=== PATIENT | male | born 1975 | race African-American/Black ===

== ENCOUNTER → 2017-08-24 | Outpatient (CLI) | payer OTHER ==
[~2017-08-24] MED LIST: ASPIR 8181 MG PO; ATORVASTATIN CA40 MG PO; BRILINTA90 MG PO; CIPRO500 MG PO; FLAGYL500 MG; FLAGYL500 MG PO; FLEXERIL; FLEXERIL PO; FLOMAX0.4 MG PO; GUAIFEN-CODEINE10 ML PO; IBUPROFEN 600600 M1; IBUPROFEN 800800 M1 PO; LISINOPRIL5 MG PO; METFORMIN HCL500 MG; METFORMIN HCL500 MG PO; NAPROSYN500 MG PO; NORCO 5-325 TA1 EACH PO; NORFLEX100 MG PO; PERCOCET 10-321 EACH; TOPROL XL25 MG PO
== END ==
LOC: RAD 09:38
DX: R06.02 Shortness of breath (principal)

== ENCOUNTER → 2017-08-27 | Outpatient (CLI) | payer OTHER ==
[2017-08-27 09:00] LABS: CREATININE 0.8 mg/dL (0.7-1.3)
== END ==
LOC: LABMALL 08:11
PROVIDERS: Internal Medicine Pulmonary Disease
DX: Z01.811 Encounter for preprocedural respiratory examination (principal); R91.1 Solitary pulmonary nodule

== ENCOUNTER 2017-09-14 15:58 | Emergency (ER) | payer OTHER ==
[~2017-09-14] VITALS: Ht 165.1 cm; Wt 92.1 kg
[~2017-09-14 15:58] MED LIST changes: -ASPIR 8181 MG PO; -ATORVASTATIN CA40 MG PO; -BRILINTA90 MG PO; -GUAIFEN-CODEINE10 ML PO; -LISINOPRIL5 MG PO; -TOPROL XL25 MG PO
[2017-09-14] MEDS ORDERED: GUAIFEN-CODEINE10 ML PO (17:15)
[2017-09-14 17:29] VITALS: BP 133/87
== END 2017-09-14 17:31 | disposition home or self-care (01) ==
LOC: ER 15:58
DX: K52.9 Noninfective gastroenteritis and colitis, unspecified (principal); J06.9 Acute upper respiratory infection, unspecified; E11.9 Type 2 diabetes mellitus without complications; I48.91 Unspecified atrial fibrillation

== ENCOUNTER 2017-12-14 00:21 | Inpatient (IN) | payer OTHER ==
[2017-12-14] VITALS (8 sets, daily range): BP systolic 110–128; BP diastolic 74–89
[~2017-12-14] VITALS: Ht 165.1 cm; Wt 92.2 kg
--- NOTE | ~2017-12-14 | HC ---
[facility] [place] [address] CONSULTATION Name: MELI HOANG Room #: 205-P [facility] IN M.R.#: [id number] Admission: 12/14/17 Attend Phys: Arnav Cantrell MD Discharge: 12/15/17 Date of : 71 Report #: [id number] THIS REPORT FOR: //name// CC: Arnav Doran REASON FOR CONSULTATION: Chest pain. HISTORY OF PRESENT ILLNESS: The patient is a 42-year-old gentleman with longstanding diabetes. He has a history of remote paroxysmal atrial fibrillation and prior smoking history. He originally presented to [facility] about 2 weeks ago with chest pain. He was hospitalized for 2 nights and reports the focus was related to elevated blood sugar rather than chest pain. He did well until last night when he had a recurrent episode of chest tightness. This was associated with shortness of breath and diaphoresis. He was treated with aspirin and nitrates and had relief of his discomfort. He did have followup with upholstery auto trimmer, although from his [facility] hospitalization, although this appointment had not been made yet. He denies heart failure symptoms, recurrent palpitations, near syncope or syncope. ALLERGIES: There are no known drug allergies. MEDICATIONS: Include ibuprofen, metformin and insulin. 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 Former smoker, quit 3 years ago. FAMILY HISTORY: Unremarkable for premature coronary artery disease. REVIEW OF SYSTEMS: All the systems are negative except is as that noted above. PHYSICAL EXAMINATION: GENERAL: Reveals a pleasant gentleman, in no distress. VITAL SIGNS: Blood pressure is 112/77, heart rate is 68 and regular. He is afebrile. HEENT: There are neither xanthelasma, subcutaneous xanthomata, oral mucosal or digital cyanosis or kyphoscoliosis present. CHEST: Clear to auscultation and percussion. CARDIAC: Reveals regular rate and rhythm with normal S1 and S2. No murmurs or rubs. ABDOMEN: Soft and nontender. EXTREMITIES: Without cyanosis, clubbing or edema. Radial pulses are 2+. NEUROLOGICAL: He is alert with a nonfocal exam. [address] [address] CONSULTATION Name: MELI HOANG Room #: [address] [place] [address] IN M.R.#: [id number] Admission: 12/14/17 Attend Phys: Arnav Canrtell MD Discharge: 12/15/17 Date of : 71 Report #: [id number] RADIOLOGICAL DATA: EKG, sinus rhythm with poor R-wave progression. Chest x-ray demonstrates a scarring, unchanged. LABORATORY DATA: Sodium is 139, potassium 3.5 and creatinine 0.9. Troponin 0.08. LDL 118. White count 13,000; hemoglobin 15; hematocrit 46 and platelet count 311. IMPRESSION: 1. Chest pain concerning for unstable angina. 2. Diabetes with miuu-bd-pild control. 3. Dyslipidemia. 4. Solitary kidney. 5. Remote paroxysmal atrial fibrillation. 6. Remote tobacco dependency. RECOMMENDATIONS: 1. Serial cardiac enzymes. 2. Aspirin, nitrates and beta blockade. 3. Coronary angiography. I have discussed the angiographic procedure to the patient. I have outlined its risks. I have outlined alternative strategies to evaluate for and treat underlying coronary disease. After a thorough discussion of the procedure, its risks and alternatives and after answering his questions, he is agreeable to proceeding. <ELECTRONICALLY SIGNED> By: Nishant Salguero MD, [facility] 12/18/17 0734 0720 0858 Nishant Salguero MD, FACC /nt
--- NOTE | ~2017-12-14 | CATHLAB ---
[facility] [address] [place] [address] INVASIVE PROCEDURE REPORT Name: MELI HOANG Room #: 427-P ADM IN M.R.#: [id number] Admission: 12/14/17 Attend Phys: Arnav Cantrell MD Discharge: Date of : 71 Date of Service: 12/14/17 0904 Report #: [id number] THIS REPORT FOR: //name// APPROVED REPORT Study performed: 12/14/2017 07:19:28 Patient Details Patient Status: In-Patient Room #: The patient is a 42 year-old male Event Personnel Nishant Salguero Welding Machine Setter, Awa Freeman, Jennifer Chua RTR, Max Rodas Ceola RN field mechanic/site lead Performed Art Access - R femoral artery* 83795 Initial Mod Sed Same Phys/QHP Gr5y 890599 87525 Mod Sed Same Phys/QHP Ea 684604 Left Heart Cath w/or w/o Coronaries 0573884 [facility] [address] Place w/wo Plasty Single LAD 560155 Hemostasis w/ Mynx Indication Non-STEMI (>6 hrs to = 12 hrs) Risk Factors Dysplipidemia , Diabetes Procedure Narrative The patient was brought urgently to the Cardiac Catheterization Laboratory and was prepped and draped in a sterile manner. The Right Groin^ was infiltrated with 1% Lidocaine subcutaneous anesthesia. A PINNACLE 6FR Sheath #[id number] sheath was inserted into the RFA^. Coronary angiography was performed using coronary diagnostic catheters. The right coronary system was accessed and visualized with a JR 4 catheter. The left coronary system was accessed and visualized with a JL 4 catheter. The left ventricle was accessed and visualized with a Pigtail catheter. Left ventricular/Aortic Valve gradient assessed via catheter pullback. Left ventriculogram was performed in HOYT projection. Closure device was deployed with a 6 Fr Mynx. The patient tolerated the procedure well and there were no complications associated with the procedure. There was no hematoma. Intraoperative Conscious Sedation Sedation start time: 07:51 Case end Time: 08:[address] [address] INVASIVE PROCEDURE REPORT Name: NATALYAMELI Room #: 427-P [facility]#: [id number] Admission: 12/14/17 Attend Phys: Arnav Cantrell MD Discharge: Date of : 71 Date of Service: 12/14/17 0904 Report #: [id number] Fentanyl 100 mcg Versed 2 mg Fluoro Time: 6.17 minutes Dose: DAP 8146.00 cGycm2 1085 mGy Contrast Type and Amount: Omnipaque 210 ml Coronary Angiography The patient's coronary anatomy is co- dominant. Diagnostic Cath Left Main Normal left main LAD Severe 99% proximal LAD stenosis. The remaining portion of the LAD was angiographically normal. Diagonal 1 Small and angiographically normal Diagonal 2 Small and angiographically normal Circumflex Large, codominant circumflex OM1 The first marginal branch exhibited minimal plaquing. This vessel trifurcated distally and supplied the inferolateral wall OM2 Second marginal branch was small and angiographically normal Right Coronary Relatively small and mild mid vessel plaquing Left Ventriculography The left ventricle is normal in size with normal contractility. The left ventricular ejection fraction is estimated to be 60-65%. Left ventricular wall motion abnormalities are not present. There is no mitral insufficiency. Hemodynamics The aortic pressure is 147/71 mmHg with a mean of 102 mmHg. The left ventricular pressure is 118/5 mmHg with a mean of mmHg. The left ventricular end diastolic pressure is 22 mmHg. PCI Technique Lesion Anticoagulation was achieved with Heparin, Integrilin. Patient was preloaded with Eptifibatide IV 8.5 mlBrillinta. Percutaneous coronary intervention was performed on the proximal left anterior descending artery segment. The lesion stenosis prior to intervention was 99% with JORGE 2 flow. A LAUNCHER 6FR EBU 3.5 #[id number] Guide Catheter was used to engage the left main ostium. A Luge Wire .014 x 182CM #[id number] Interventional Guidewire was used to cross the lesion. BALLOON DILATION A Balloon catheter Euphora RX 3.0 x 12 #[id number] was inserted and inflated up to 10.00atm for 34seconds. Repeat angiography revealed [facility] [address] [place] [address] INVASIVE PROCEDURE REPORT Name: MELI HOANG Room #: 427-P [facility] IN M.R.#: [id number] Admission: 12/14/17 Attend Phys: Arnav Cantrell MD Discharge: Date of : 71 Date of Service: 12/14/17 0904 Report #: [id number] the following post-dilatation results: moderately severe residual stenosis. Additional Inflation: 8.00atm for 19seconds. STENT DEPLOYMENT A drug-eluting stent TREK NC RX 3.0 X 12 #[id number] was inserted and inflated up to 9.00atm for 30seconds. Repeat angiography revealed the following post-stent deployment results: 0% residual stenosis with JORGE III flow. POST STENT DEPLOYMENT BALLOON DILATION A Balloon catheter TREK NC RX 3.0 X 12 #[id number] was inserted and inflated up to 18.00atm for 32seconds. Final angiography reveals 0 % stenosis with JORGE 3 flow. Conclusion 1. Normal global and regional systolic function. EF 65% 2. LM normal 3. Critical 99% proximal LAD stenosis treated with 3.5 x 15mm Resolute medicated stent 4. Circumflex co-dominant, mild plaquing 5. RCA relatively small, mild plaquing Recommendations Cardiac Rehabilitation Referral Aggressive Medical Therapy Medications Administered OLGA Inhibitor (any) Aspirin (any) Beta Wan (any) Statin (any) Ticagrelor Cardiac Rehabilitation Referral <ELECTRONICALLY SIGNED> By: Nishant Salguero MD, [facility] 12/14/17903 3 3 Nishant Salguero MD, FAC /INF
--- NOTE | ~2017-12-14 | EKG ---
[address] [place] [address] ELECTROCARDIOGRAM REPORT Name: MELI HOANG Room #: 205- DIS IN M.R.#: [id number] Admission: 12/14/17 Attend Phys: Arnav Cantrell MD Discharge: 12/15/17 Date of : 71 Report #: [id number] THIS REPORT FOR: //name// [facility] Test Date: 2017-12-15 Test Time: 06:22:01 Pat Name: MELI HOANG Department: Room: 205 P Gender: M Parts Designer: jlambaxel : 1975 Requested By: Nishant Salguero Order Number: [id number] MD: Nishant Salguero Measurements Intervals [place] Rate: 72 P: 40 NH: 218 QRS: 70 QRSD: 112 T: 120 QT: 400 QTc: 438 Interpretive Statements Sinus rhythm Prolonged NH interval Abnrm T, consider ischemia, anterolateral lds Compared to ECG 12/14/2017 09:04:35 Anterior T wave abnormality is more pronounced Electronically Signed On 12-17-2017 7:51:12 CDT by Nishant Salguero [email or web address] <ELECTRONICALLY SIGNED> By: Nishant Salguero MD, [facility] 12/17/17 0751 0622 0622 Nishant Salguero MD, [facility] /EPI
--- NOTE | ~2017-12-14 | EKG ---
[address] [place] [address] ELECTROCARDIOGRAM REPORT Name: MELI HOANG Room #: 205-P ADM IN M.R.#: [id number] Admission: 12/14/17 Attend Phys: Arnav Cantrell MD Discharge: Date of : 71 Report #: [id number] THIS REPORT FOR: //name// [facility] Test Date: 2017-12-14 Test Time: 09:04:35 Pat Name: MELI HOANG Department: Room: 427 P Gender: M Drapery Counselor: Rommel IQBAL : 1975 Requested By: Nishant Salguero Order Number: [id number] MD: Nishant Salguero Measurements Intervals [place] Rate: 75 P: 53 MD: 232 QRS: 71 QRSD: 88 T: 8 QT: 339 QTc: 379 Interpretive Statements Sinus rhythm Prolonged MD interval Borderline T wave abnormalities Compared to ECG 12/14/2017 00:25:42 T-wave abnormality now present Electronically Signed On 12-14-2017 16:52:24 CDT by Nishant Salguero [email or web address] <ELECTRONICALLY SIGNED> By: Nishant Salguero MD, [facility] 12/14/17 165 3 3 Nishant Salguero MD, [facility] /EPI
--- NOTE | ~2017-12-14 | EKG ---
[address] [place] [address] ELECTROCARDIOGRAM REPORT Name: NATALYAMELI ALEX Room #: 427-P ADM IN M.R.#: [id number] Admission: 12/14/17 Attend Phys: Arnav Cantrell MD Discharge: Date of : 71 Report #: [id number] THIS REPORT FOR: //name// [facility] ED Test Date: 2017-12-14 Test Time: 00:25:42 Pat Name: MELI HOANG Department: Room: Gender: M Director Online Marketing: DEE DEE : 1975 Requested By: Monei Seals Order Number: [id number] MD: Nishant Salguero Measurements Intervals [place] Rate: 84 P: 34 NV: 229 QRS: 43 QRSD: 93 T: 21 QT: 359 QTc: 425 Interpretive Statements Sinus rhythm Prolonged NV interval Probable left atrial enlargement Probable anteroseptal infarct, old No previous ECG available for comparison Electronically Signed On 12-14-2017 8:52:29 CDT by Nishant Salguero [email or web address] <ELECTRONICALLY SIGNED> By: Nishant Salguero MD, [facility] 12/14/17 0852 0025 0025 Nishant Salguero MD, FACC /EPI
[~2017-12-14 00:21] MED LIST changes: +GUAIFEN-CODEINE10 ML PO
[2017-12-14 00:51] LABS: HEMOGLOBIN 15.7 gm/dL (14.0-18.0); MCH 30.9 pg (26.0-34.0); RBC 5.09 mil/uL (4.50-6.00)
[2017-12-14 00:53] LABS: ABSOLUTE NEUTROPHILS 6.8 thou/uL (1.4-8.2); BASOPHILS 0.7 % (0.0-2.0); EOSINOPHILS 1.9 % (0.0-3.0); HEMATOCRIT 46.5 % (42.0-52.0); LYMPHOCYTES 35.6 % (24.0-44.0); MCHC 33.8 g/dL (28.0-37.0); MCV 91.4 fL (80.0-100.0); MONOCYTES 9.5 % (1.0-8.0); PLATELET COUNT 311 thou/uL (150-400); POLYS 52.3 % (36.0-66.0); RDW 12.8 % (10.5-14.5)
[2017-12-14 00:57] LABS: ANION GAP 8 mmol/L (7-16); BUN 9 mg/dL (7-18); CALCIUM 9.8 mg/dL (8.5-10.1); CHLORIDE 100 mmol/L (98-107); CO2 31 mmol/L (21-32); CREATININE 0.9 mg/dL (0.7-1.3); GLUCOSE 279 mg/dL (74-106); POTASSIUM 3.5 mmol/L (3.5-5.1); SODIUM 139 mmol/L (136-145)
[2017-12-14 01:06] LABS: TROPONIN-I < 0.04 ng/mL (<0.06)
[2017-12-14 05:27] LABS: CHOLESTEROL 181 mg/dL (<200); HDL CHOLESTEROL 31 mg/dL (>40); LDL CHOLESTEROL 118 mg/dL (<100); TC:HDL 5.8 Ratio (Not establshd); TRIGLYCERIDE 161 mg/dL (<150); VLDL 32 mg/dL (<40)
[2017-12-14 05:38] LABS: SERUM ASSESSMENT Clear
[2017-12-14] MEDS ORDERED: LISINOPRIL5 MG PO (08:44)
[2017-12-14] MEDS ORDERED: BRILINTA90 MG PO (08:44)
[2017-12-14] MEDS ORDERED: ATORVASTATIN CA40 MG PO (08:44)
[2017-12-14] MEDS ORDERED: TOPROL XL25 MG PO (08:44)
[2017-12-14] MEDS ORDERED: ASPIR 8181 MG PO (08:44)
[2017-12-15 00:17] VITALS: BP 105/71
[2017-12-15 04:48] VITALS: BP 107/69
[2017-12-15 04:50] LABS: HEMOGLOBIN 15.1 gm/dL (14.0-18.0); MCH 30.7 pg (26.0-34.0); MCHC 33.7 g/dL (28.0-37.0); MCV 91.1 fL (80.0-100.0); RBC 4.94 mil/uL (4.50-6.00); RDW 12.9 % (10.5-14.5); WBC 11.6 thou/uL (4.0-11.0)
[2017-12-15 05:08] LABS: ALBUMIN 3.3 g/dL (3.4-5.0); ANION GAP 8 mmol/L (7-16); BUN 8 mg/dL (7-18); CHLORIDE 105 mmol/L (98-107); CO2 27 mmol/L (21-32); CREATININE 0.7 mg/dL (0.7-1.3); GLUCOSE 179 mg/dL (74-106); POTASSIUM 3.6 mmol/L (3.5-5.1); SGOT 15 U/L (15-37); SGPT 29 U/L (30-65); SODIUM 140 mmol/L (136-145); TOTAL BILIRUBIN 0.7 mg/dL (<0.1-1.0); TOTAL PROTEIN 6.5 g/dL (6.4-8.2); TROPONIN-I < 0.04 ng/mL (<0.06)
[2017-12-15 07:15] VITALS: BP 113/77
[2017-12-15 09:54] VITALS: BP 107/69
== END 2017-12-15 10:32 | disposition home or self-care (01) | DRG 246 ==
LOC: ER 00:21 → EROBS 01:29 → 4E 01:29 → 2N 01:29 → 4E 02:35 → 2N 09:49
PROVIDERS: Emergency Medicine; Nurse Practitioner Family
PROC: 027034Z Dilation of Coronary Artery, One Artery with Drug-eluting Intraluminal Device, Percutaneous Approach (ICD-10-PCS; principal; 2017-12-14)
PROC: B2111ZZ Fluoroscopy of Multiple Coronary Arteries using Low Osmolar Contrast (ICD-10-PCS; principal; 2017-12-14)
PROC: 4A023N7 Measurement of Cardiac Sampling and Pressure, Left Heart, Percutaneous Approach (ICD-10-PCS; principal; 2017-12-14)
PROC: B2151ZZ Fluoroscopy of Left Heart using Low Osmolar Contrast (ICD-10-PCS; principal; 2017-12-14)
DX: I21.4 Non-ST elevation (NSTEMI) myocardial infarction (principal); I50.33 Acute on chronic diastolic (congestive) heart failure; Q60.0 Renal agenesis, unilateral; I25.10 Atherosclerotic heart disease of native coronary artery without angina pectoris; E78.5 Hyperlipidemia, unspecified; I48.0 Paroxysmal atrial fibrillation; I24.9 Acute ischemic heart disease, unspecified; E11.65 Type 2 diabetes mellitus with hyperglycemia; Z79.82 Long term (current) use of aspirin; Z79.899 Other long term (current) drug therapy; Z82.49 Family history of ischemic heart disease and other diseases of the circulatory system; Z83.3 Family history of diabetes mellitus; Z72.0 Tobacco use
CPT/HCPCS: 10081

== ENCOUNTER 2018-02-27 19:14 | Emergency (ER) | payer OTHER ==
[~2018-02-27] VITALS: Ht 165.1 cm; Wt 97.5 kg
[~2018-02-27 19:14] MED LIST changes: +ASPIR 8181 MG PO; +ATORVASTATIN CA40 MG PO; +BRILINTA90 MG PO; +LISINOPRIL5 MG PO; +TOPROL XL25 MG PO
[2018-02-27] MEDS ORDERED: NORCO 5-325 TA1 EACH PO (20:44)
== END 2018-02-27 21:31 | disposition home or self-care (01) ==
LOC: ER 19:14
DX: S89.301A Unspecified physeal fracture of lower end of right fibula, initial encounter for closed fracture (principal); E11.9 Type 2 diabetes mellitus without complications; I48.91 Unspecified atrial fibrillation; Z87.891 Personal history of nicotine dependence; X50.1XXA Overexertion from prolonged static or awkward postures, initial encounter; Y92.89 Other specified places as the place of occurrence of the external cause; Y93.89 Activity, other specified; Y99.8 Other external cause status

== ENCOUNTER 2018-11-04 14:45 | Emergency (ER) | payer OTHER ==
[~2018-11-04] VITALS: Ht 165.1 cm; Wt 99.3 kg
[2018-11-04] MEDS ORDERED: NORCO 5-325 TA1 EACH PO (17:41)
[2018-11-04] MEDS ORDERED: MOBIC15 MG PO (17:41)
[2018-11-04] MEDS ORDERED: VALIUM5 MG PO (17:41)
[2018-11-04 17:56] VITALS: BP 134/76
== END 2018-11-04 17:51 | disposition home or self-care (01) ==
LOC: ER 14:45
DX: M54.5 Low back pain (principal); E11.9 Type 2 diabetes mellitus without complications; I48.91 Unspecified atrial fibrillation; Z87.891 Personal history of nicotine dependence

== ENCOUNTER 2019-05-20 09:17 | Emergency (ER) | payer OTHER ==
[~2019-05-20] VITALS: Ht 165.1 cm; Wt 93.0 kg
[~2019-05-20 09:17] MED LIST changes: +MOBIC15 MG PO; +VALIUM5 MG PO
[2019-05-20 09:18] VITALS: BP 147/96
[2019-05-20] MEDS ORDERED: TOBRAMYCIN SULFA5 M1 OPHTHALMIC (09:49)
== END 2019-05-20 10:10 | disposition home or self-care (01) ==
LOC: ER 09:17
DX: H00.14 Chalazion left upper eyelid (principal); H10.9 Unspecified conjunctivitis; E11.9 Type 2 diabetes mellitus without complications; I48.91 Unspecified atrial fibrillation; Z87.891 Personal history of nicotine dependence

== ENCOUNTER 2019-10-10 09:11 | Emergency (ER) | payer OTHER ==
[~2019-10-10] VITALS: Ht 165.1 cm; Wt 95.3 kg
[~2019-10-10 09:11] MED LIST changes: +TOBRAMYCIN SULFA5 M1 OPHTHALMIC
[2019-10-10] MEDS ORDERED: TAMIFLU75 MG PO (10:21)
[2019-10-10 10:33] VITALS: BP 122/91
== END 2019-10-10 10:38 | disposition home or self-care (01) ==
LOC: ER 09:11
DX: J10.1 Influenza due to other identified influenza virus with other respiratory manifestations (principal); E11.9 Type 2 diabetes mellitus without complications; I48.91 Unspecified atrial fibrillation; Z87.891 Personal history of nicotine dependence

== ENCOUNTER 2020-01-27 17:52 | Emergency (ER) | payer OTHER ==
[~2020-01-27] VITALS: Ht 165.1 cm; Wt 95.3 kg
[2020-01-27 17:52] VITALS: BP 116/91
[~2020-01-27 17:52] MED LIST changes: +TAMIFLU75 MG PO
[2020-01-27] MEDS ORDERED: NORCO 5-325 TA1 EAC1 PO (18:45)
[2020-01-27] MEDS ORDERED: CRUTCHES MISCELL (19:07)
== END 2020-01-27 19:15 | disposition home or self-care (01) ==
LOC: ER 17:52
DX: S93.401A Sprain of unspecified ligament of right ankle, initial encounter (principal); E11.9 Type 2 diabetes mellitus without complications; I48.91 Unspecified atrial fibrillation; Z79.899 Other long term (current) drug therapy; Z87.891 Personal history of nicotine dependence; W18.09XA Striking against other object with subsequent fall, initial encounter; Y93.89 Activity, other specified; Y92.89 Other specified places as the place of occurrence of the external cause; Y99.8 Other external cause status